=== PATIENT | female | born 2000 ===

== ENCOUNTER 2022-01-12 08:36 | Day surgery (SDC) | payer OTHER, SELFPAY ==
[2022-01-12] VITALS (9 sets, daily range): BP systolic 98–118; BP diastolic 47–84; PULSE 65–91; RESP 4–16; TEMP 36.6–37.5; O2SAT 95–100; BMI 44.6
[2022-01-12] MEDS: LACTATED RINGERS 1000 ML 1,000 ML 100 ML IV (09:00)
[2022-01-12 09:03] LABS: HCG Qualitative* Negative (Negative)
[2022-01-12] MEDS: SODIUM CHLORIDE 0.9 % (FLUSH) 10 ML SYRINGE IVF (09:10)
[2022-01-12] MEDS: MIDAZOLAM HCL 1 MG/ML inj IVP (09:32)
--- NOTE | 2022-01-12 10:00 | W.ANESCHARGE ---
Anesthesia Charges Start Date/Time Anesthesia Start Date: 01/12/22 Anesthesia Start Time: 10:05 Stop Date/Time Anesthesia Stop Date: 01/12/22 Anesthesia Stop Time: 10:30 Summary Emergency: No
--- NOTE | 2022-01-12 10:31 | W.ANESCHARGE ---
Anesthesia Charges Start Date/Time Anesthesia Start Date: 01/12/22 Anesthesia Start Time: 10:05 Stop Date/Time Anesthesia Stop Date: 01/12/22 Anesthesia Stop Time: 10:30 Summary Emergency: No
--- NOTE | 2022-01-12 11:23 | W.PM.ENTPROC ---
Procedure Note Date of procedure: 01/12/22 Procedure: Retained tympanostomy tubes bilaterally left in tympanic membrane with surrounding granulation tissue, right underneath tympanic membrane in middle ear space Postoperative diagnosis same plus right serous otitis media Procedure removal retained tympanostomy tubes and right myringotomy with tube Under general mask anesthesia patient was prepped and draped in usual fashion. The left ear canal was inspected with the operating microscope and the tube was clearly visible surrounded by granulation tissue this tube was removed as well as most of the granulation tissue. There did not appear to be serous fluid in the middle ear space. The right ear canal was inspected and the tube visible beneath tympanic membrane. A small incision was made the tube easily removed with an alligator forceps. There was a large amount of serous fluid was aspirated. The incision was widened slightly an 8 tube placed without difficulty. Ciprodex drops were placed in both ears there were no complications blood loss 0 Surgeon: Bin Navarrete MD
== END 2022-01-12 11:30 | disposition home or self-care (01) ==
PROVIDERS: Visit Provider Otolaryngology
PROC: (CPT 69420; principal; 2022-01-12 08:30)
DX: T85.698A Other mechanical complication of other specified internal prosthetic devices, implants and grafts, initial encounter (principal); H65.91 Unspecified nonsuppurative otitis media, right ear
CPT/HCPCS: 69436; 69424; 00120; 84703; A9270; J2250; J2704; J7120